=== PATIENT | male | born 1955 | race Caucasian/White ===

== ENCOUNTER 2018-06-10 06:13 | Day surgery (SDC) | payer BC, OTHER ==
[2018-06-05 15:33] VITALS: BMI 27.6
[2018-06-10 06:37] VITALS: TEMP 97.5
[2018-06-10] MEDS ORDERED: SUCCINYLCHOLINE CHLORIDE 200 MG/10 ML VIAL ONE (07:18)
[2018-06-10] MEDS ORDERED: MIDAZOLAM HCL 2 MG/2 ML SINGLE DOSE VIAL ONE ×3 (07:18→08:18)
[2018-06-10] MEDS ORDERED: PROPOFOL 20 ML ONE ×4 (07:18)
--- NOTE | 2018-06-10 08:04 | HP ---
History & Physical Update - History History: No Change - Physical Physical: No Change - Assessment Assessment: No Change - Plan Plan: No Change (no changes since visit on 05/28/18)
[2018-06-10] MEDS ORDERED: ceFAZolin SODIUM 1 GM VIAL IVPB ONE (08:17)
[2018-06-10] MEDS ORDERED: LIDOCAINE HCL 1% PRESERVATIVE FREE - 30ML VIAL IJ ONE (08:26)
[2018-06-10] MEDS ORDERED: BUPIVACAINE HCL/PF 0.5% (5MG/ML) 10 ML VIAL ONE (08:30)
[2018-06-10] MEDS ORDERED: BENZOIN/ALOE VERA/STORAX/TOLU 58 ML BOTTLE ONE (08:42)
--- NOTE | 2018-06-10 09:05 | OP ---
Operative Note - Note: Operative Date: 06/10/18 Pre-Operative Diagnosis: Left flank mass Operation: excision of left flank mass Post-Operative Diagnosis: Same as Pre-op Surgeon: Dane Chandler Ship Boss: Melina Bobo Anesthesiologist/BREAKER BOSS: Kwame Knight Anesthesia: Local, MAC Specimens Removed: left flank mass Estimated Blood Loss (mls): 5 Fluid Volume Replaced (mls): 500 Operative Report Dictated: Yes
--- NOTE | 2018-06-10 09:08 | SURG ---
Surgery Agricultural Equipment Mechanic Note Agricultural Equipment Mechanic: Melina Bobo PA-C Date of Service: 06/10/18 Diagnosis: left flank mass Procedure: excision of left flank mass I was present for the entirety of the operative procedure. For further detail, please refer to operative report. Visit type - Case Type Case Type: Scheduled - New patient This patient is new to me today: Yes Date on this admission: 06/10/18
[2018-06-10 10:30] VITALS: BP 129/73; PULSE 70
--- NOTE | 2018-06-12 11:41 | PATH ---
Surgical Pathology Report Patient Name: ADELA BENAVIDEZ JR [facility]. Rec. #: [id number] /Age/Gender: 1955 (Age: 63) / M Account: [id number] Location: [facility] SURGICAL Taken: 06/10/2018 Received: 06/10/2018 Reported: 06/12/2018 Physicians: Dane Chandler MD Specimen(s) Received SEBACEOUS CYST Clinical History Sebaceous cyst, left back Final Diagnosis BACK, LEFT, SEBACEOUS CYST, EXCISION: EPIDERMAL INCLUSION CYST. Electronically Signed Liliam Kenyon M.D. Gross Description Received in formalin labeled "sebaceous cyst left back," is a 4.0 x 3.0 x 2.0 cm intact cyst which is partially surfaced by a 4.0 x 0.8 cm myers, elliptical, unremarkable portion of skin. The cyst lumen contains myers sebaceous material. A phone representative section is submitted in one cassette. 06/10/201806/10/2018
--- NOTE | 2018-07-16 11:40 | OP ---
DATE OF OPERATION: 06/10/2018 PREOPERATIVE DIAGNOSIS: Left flank mass. POSTOPERATIVE DIAGNOSIS: Left flank mass. PROCEDURE: Excision, left flank mass. SURGEON: Dane Chandler MD BROOM BUILDER: Melina Bobo PA-C ANESTHESIA: Local with IV sedation. OPERATIVE FINDINGS: There was a subcutaneous left flank mass just above the left posterior-superior iliac spine, and it was clinically consistent with a sebaceous cyst measuring approximately 5 cm in greatest dimension. The rest of the findings were unremarkable. DESCRIPTION OF PROCEDURE: The patient was placed on the operating table in the right lateral decubitus position, and the area over the mass was prepped with ChloraPrep and draped in sterile fashion. A timeout was taken and an incision mapped out and the area infiltrated with 1% Xylocaine and 0.50% Marcaine in equal concentration. Incision was made with a scalpel and taken down through skin and subcutaneous tissue. Using blunt dissection, the mass was completely dissected from the surrounding tissues down to its pedicle which was clamped on the cystic side and sent for pathological examination. The pedicle was ligated with 3-0 Vicryl suture. Hemostasis was secured with electrocautery and the wound copiously irrigated with sterile saline and then the incision closed in layers with interrupted 3-0 Vicryl for the deep dermis and 4-0 Biosyn in a subcuticular continuous fashion. Steri- Strips and dry sterile dressings were placed and the procedure terminated at this point and the patient transferred to the postanesthesia care unit in stable condition, awake and alert. ESTIMATED BLOOD LOSS: 5 mL REPLACEMENTS: Crystalloid. DRAINS: None. SPECIMENS: Left flank mass to Pathology. I, Dane Chandler MD, was physically present in the operating room from the time the patient was placed on the operating table until he was transferred to the postanesthesia care unit in stable condition, awake and alert. MD MOHAN Barr/[id number] MTDD
== END 2018-06-10 10:40 | disposition home or self-care (01) ==
LOC: JASU-SURG 06:13
PROVIDERS: ATTEND Surgery
PROC: 0JBM0ZZ Excision of Left Upper Leg Subcutaneous Tissue and Fascia, Open Approach (ICD-10-PCS; 2018-06-10)
PROC: 0JQM0ZZ Repair Left Upper Leg Subcutaneous Tissue and Fascia, Open Approach (ICD-10-PCS; principal; 2018-06-10 08:00)
DX: L72.3 Sebaceous cyst (principal)
CPT/HCPCS: 88304-TC

== ENCOUNTER 2020-12-28 12:19 | Inpatient (IN) | payer BC ==
[2020-12-28] MEDS ORDERED: ACETAMINOPHEN 1000 MG/100 ML VIAL (NON FORMULARY) IVPB ONE (13:09)
[2020-12-28] MEDS ORDERED: ONDANSETRON 4 MG/2 ML VIAL IVPUSH ONE (13:09)
[2020-12-28] MEDS ORDERED: LACTATED RINGERS SOLUTION 1000 ML INFUS.BAG IV ONE (13:09)
[2020-12-28] MEDS ORDERED: ONDANSETRON 4 MG/2 ML VIAL ONE (13:33)
[2020-12-28] MEDS ORDERED: ACETAMINOPHEN INJECTION 100 ML IVPB ONE (13:33)
[2020-12-28] MEDS ORDERED: SODIUM CHLORIDE 0.9% 500 ML INFUS.BAG IV ONE ×2 (13:36→15:17)
[2020-12-28 14:06] LABS: BASO % 0.5 % (0-2.0); HEMATOCRIT 41.1 % (35.4-49); HEMOGLOBIN 14.6 GM/dL (11.7-16.9); LYMPH % 4.9 % (8-40); MCH 29.9 pg (25.7-33.7); MCHC 35.6 g/dl (32.0-35.9); MEAN CELL VOLUME 83.8 fl (80-96); MEAN PLT VOLUME 9.2 fl (7.5-11.1); MONO % 3.4 % (3.8-10.2); NEUT % 91.2 % (42.8-82.8); PLATELET COUNT 149 K/MM3 (134-434); RDW 13.3 % (11.9-15.9); WHITE BLOOD COUNT 5.2 K/mm3 (4.0-10.0)
[2020-12-28 14:24] LABS: CHLORIDE 99 mmol/L (98-107); POTASSIUM 3.8 mmol/L (3.5-5.1); SODIUM 129 mmol/L (136-145)
[2020-12-28 14:26] LABS: CALCIUM 7.9 mg/dL (8.5-10.1); GLUCOSE,RANDOM 103 mg/dL (74-106)
[2020-12-28 14:27] LABS: ALBUMIN 3.1 g/dl (3.4-5.0); ANION GAP 10 MMOL/L (8-16); BLOOD UREA NITROGEN 27.8 mg/dL (7-18); CO2 21 mmol/L (21-32)
[2020-12-28 14:30] LABS: CREATININE 1.4 mg/dL (0.55-1.3); SGOT/AST 72 U/L (15-37); SGPT/ALT 55 U/L (13-61)
[2020-12-28 14:31] LABS: BILIRUBIN,TOTAL 0.9 mg/dL (0.2-1)
[2020-12-28 14:32] LABS: ALK PHOS 49 U/L (45-117); TOT PROT 6.4 g/dl (6.4-8.2)
[2020-12-28 14:34] LABS: LDH 513 U/L (87-246)
[2020-12-28] MEDS ORDERED: DEXAMETHASONE SOD PHOSPHATE 10 MG/1 ML VIAL IVPUSH ONE (15:14)
[2020-12-28 15:26] LABS: ANISOCYTOSIS 1+; MACROCYTOSIS 0; PLATELET ESTIMATE DECREASED
[2020-12-28] MEDS ORDERED: DEXAMETHASONE SOD PHOSPHATE 10 MG/1 ML VIAL ONE (15:35)
[2020-12-28] MEDS ORDERED: CEFTRIAXONE 1,000 MG in DEXTROSE 5%-WATER - 50 ML IVPB ONE (15:51)
[2020-12-28] MEDS ORDERED: AZITHROMYCIN IVPB 500 MG in DEXTROSE 5%-WATER - 250 ML IVPB ONE (15:51)
[2020-12-28] MEDS ORDERED: CEFTRIAXONE 1 GM/50 ML BAG ONE (16:17)
[2020-12-28] MEDS ORDERED: AZITHROMYCIN IVPB 500 MG/250 ML BAG IVPB ONE (16:17)
[2020-12-28] MEDS ORDERED: ACETAMINOPHEN 325 MG TABLET (FP) PO PRN (16:30)
[2020-12-28] MEDS ORDERED: ASCORBIC ACID 500 MG TABLET (FP) ONE (21:49)
[2020-12-28] MEDS ORDERED: ZINC SULFATE 220 MG CAPSULE (FP) ONE (21:50)
[2020-12-28] MEDS ORDERED: APIXABAN 5 MG TABLET ONE (21:50)
[2020-12-28] MEDS: APIXABAN 5 MG TABLET PO SCH (21:54)
[2020-12-28] MEDS: ZINC SULFATE 220 MG CAPSULE (FP) PO SCH (21:54)
[2020-12-28] MEDS: ASCORBIC ACID 500 MG TABLET (FP) PO SCH (21:54)
[2020-12-29 07:53] LABS: BASO % 0.3 % (0-2.0); HEMATOCRIT 37.4 % (35.4-49); HEMOGLOBIN 13.3 GM/dL (11.7-16.9); LYMPH % 6.5 % (8-40); MCHC 35.6 g/dl (32.0-35.9); MEAN CELL VOLUME 84.1 fl (80-96); MONO % 4.2 % (3.8-10.2); PLATELET COUNT 148 K/MM3 (134-434); RBC 4.45 M/mm3 (4.00-5.60); RDW 13.4 % (11.9-15.9); WHITE BLOOD COUNT 5.3 K/mm3 (4.0-10.0)
[2020-12-29 08:11] LABS: POTASSIUM 4.5 mmol/L (3.5-5.1)
[2020-12-29 08:16] LABS: BLOOD UREA NITROGEN 27.2 mg/dL (7-18); CALCIUM 7.6 mg/dL (8.5-10.1)
[2020-12-29 08:17] LABS: ALBUMIN 2.6 g/dl (3.4-5.0); MAGNESIUM 2.5 mg/dL (1.8-2.4)
[2020-12-29 08:19] LABS: PHOSPHOROUS 2.7 mg/dL (2.5-4.9)
[2020-12-29 08:22] LABS: CREATININE 1.2 mg/dL (0.55-1.3)
[2020-12-29 08:23] LABS: BILIRUBIN,TOTAL 0.6 mg/dL (0.2-1)
[2020-12-29 08:24] LABS: TOT PROT 5.5 g/dl (6.4-8.2)
[2020-12-29] MEDS ORDERED: cefTRIAXone SODIUM 1 GM VIAL ONE (08:45)
[2020-12-29] MEDS ORDERED: DEXTROSE 5%-WATER - 50 ML IVPB ONE (08:45)
[2020-12-29] MEDS: CEFTRIAXONE 1 GM in DEXTROSE 5%-WATER - 50 ML IVPB SCH (09:01)
[2020-12-29] MEDS: DEXAMETHASONE SOD PHOSPHATE 10 MG/1 ML VIAL IVPUSH SCH (09:01)
[2020-12-29] MEDS: AZITHROMYCIN IVPB 500 MG/250 ML BAG IVPB SCH (09:01)
[2020-12-29] MEDS: CHOLECALCIFEROL (VIT D3) 1,000 UNIT (25 MCG) TABLET PO SCH (09:03)
[2020-12-29] MEDS: ZINC SULFATE 220 MG CAPSULE (FP) PO SCH ×2 (09:03→21:38)
[2020-12-29] MEDS: ASCORBIC ACID 500 MG TABLET (FP) PO SCH ×2 (09:03→21:38)
[2020-12-29] MEDS: APIXABAN 5 MG TABLET PO SCH ×2 (09:03→21:38)
[2020-12-29] MEDS ORDERED: REMDESIVIR 200 MG in SODIUM CHLORIDE 210 ML IVPB ONE (13:00)
[2020-12-29] MEDS: BUDESONIDE/FORMETEROL FUMARATE 160/4.5 mcg INHALER IH SCH ×2 (13:20→21:38)
[2020-12-29] MEDS: ALBUTEROL SO4 HFA INHALER IH SCH ×2 (17:33→21:38)
[2020-12-29] MEDS ORDERED: BENZOCAINE/MENTH/CETYLPYRD CL 1 EACH LOZENGE MM PRN (19:57)
[2020-12-29] MEDS ORDERED: guaiFENesin/CODEINE 5 ML UNIT-DOSE CUPS PO PRN (19:57)
[2020-12-29] MEDS ORDERED: SODIUM CHLORIDE NASAL SPRAY 44 ML BOTTLE NS PRN (19:57)
[2020-12-29] MEDS ORDERED: SODIUM CHLORIDE 1,000 ML IV SCH (20:15)
[2020-12-30 07:56] LABS: HEMOGLOBIN 13.1 GM/dL (11.7-16.9); MCH 30.1 pg (25.7-33.7); MCHC 35.5 g/dl (32.0-35.9); MEAN CELL VOLUME 84.7 fl (80-96); MEAN PLT VOLUME 8.8 fl (7.5-11.1); PLATELET COUNT 183 K/MM3 (134-434); RBC 4.37 M/mm3 (4.00-5.60); RDW 13.4 % (11.9-15.9); WHITE BLOOD COUNT 9.2 K/mm3 (4.0-10.0)
[2020-12-30 08:28] LABS: ALBUMIN 2.4 g/dl (3.4-5.0); BLOOD UREA NITROGEN 24.9 mg/dL (7-18); CALCIUM 7.4 mg/dL (8.5-10.1)
[2020-12-30 08:31] LABS: CREATININE 1.1 mg/dL (0.55-1.3)
[2020-12-30 08:33] LABS: BILIRUBIN,TOTAL 0.6 mg/dL (0.2-1); TOT PROT 5.2 g/dl (6.4-8.2)
[2020-12-30] MEDS ORDERED: DEXTROSE 5%-WATER - 50 ML IVPB ONE (08:57)
[2020-12-30] MEDS ORDERED: cefTRIAXone SODIUM 1 GM VIAL ONE (08:57)
[2020-12-30] MEDS: ALBUTEROL SO4 HFA INHALER IH SCH ×4 (09:00→21:36)
[2020-12-30] MEDS: AZITHROMYCIN IVPB 500 MG/250 ML BAG IVPB SCH (09:09)
[2020-12-30] MEDS: CEFTRIAXONE 1 GM in DEXTROSE 5%-WATER - 50 ML IVPB SCH (09:09)
[2020-12-30] MEDS: DEXAMETHASONE SOD PHOSPHATE 10 MG/1 ML VIAL IVPUSH SCH (09:10)
[2020-12-30] MEDS: ASCORBIC ACID 500 MG TABLET (FP) PO SCH ×2 (09:10→21:36)
[2020-12-30] MEDS: ZINC SULFATE 220 MG CAPSULE (FP) PO SCH ×2 (09:10→21:36)
[2020-12-30] MEDS: APIXABAN 5 MG TABLET PO SCH ×2 (09:11→21:36)
[2020-12-30] MEDS: CHOLECALCIFEROL (VIT D3) 1,000 UNIT (25 MCG) TABLET PO SCH (09:13)
[2020-12-30] MEDS: BUDESONIDE/FORMETEROL FUMARATE 160/4.5 mcg INHALER IH SCH ×2 (09:13→21:36)
[2020-12-30] MEDS: REMDESIVIR 100 MG in SODIUM CHLORIDE 230 ML IVPB SCH (13:31)
[2020-12-30] MEDS ORDERED: ARTIFICIAL TEARS (POLYVINYL ALCOHOL) OPTH DROPS OU PRN (15:17)
[2020-12-30] MEDS ORDERED: MORPHINE SULFATE 2 MG/ML VIAL IVPUSH PRN (16:51)
[2020-12-30 17:39] LABS: ARTERIAL BLD GAS O2 SATURATION 96.3 mmHg (95-98); ARTERIAL BLOOD GAS BASE EXCESS -3.7 mmol/L (-2-2); ARTERIAL BLOOD GAS pH 7.472 (7.350-7.450)
[2020-12-30 17:53] LABS: ALLENS TEST POSITIVE
[2020-12-30 17:54] LABS: VENT MODE 15L
[2020-12-31 07:21] LABS: HEMATOCRIT 40.9 % (35.4-49); HEMOGLOBIN 14.3 GM/dL (11.7-16.9); MCH 30.2 pg (25.7-33.7); MCHC 35.1 g/dl (32.0-35.9); MEAN CELL VOLUME 86.2 fl (80-96); MEAN PLT VOLUME 8.9 fl (7.5-11.1); PLATELET COUNT 227 K/MM3 (134-434); RBC 4.75 M/mm3 (4.00-5.60); RDW 13.5 % (11.9-15.9); WHITE BLOOD COUNT 10.2 K/mm3 (4.0-10.0)
[2020-12-31 07:37] LABS: POTASSIUM 3.9 mmol/L (3.5-5.1)
[2020-12-31 07:40] LABS: ALBUMIN 2.7 g/dl (3.4-5.0); BLOOD UREA NITROGEN 24.9 mg/dL (7-18); CALCIUM 7.7 mg/dL (8.5-10.1)
[2020-12-31 07:43] LABS: CREATININE 1.1 mg/dL (0.55-1.3)
[2020-12-31 07:45] LABS: BILIRUBIN,TOTAL 0.9 mg/dL (0.2-1)
[2020-12-31] MEDS: ALBUTEROL SO4 HFA INHALER IH SCH ×5 (08:30→21:33)
[2020-12-31] MEDS ORDERED: PT OWN MED DRAWER 7, Y5N ONE (10:06)
[2020-12-31] MEDS: DEXAMETHASONE SOD PHOSPHATE 10 MG/1 ML VIAL IVPUSH SCH (10:12)
[2020-12-31] MEDS: APIXABAN 5 MG TABLET PO SCH ×2 (10:12→21:33)
[2020-12-31] MEDS: ZINC SULFATE 220 MG CAPSULE (FP) PO SCH ×2 (10:13→21:33)
[2020-12-31] MEDS: BUDESONIDE/FORMETEROL FUMARATE 160/4.5 mcg INHALER IH SCH ×2 (10:13→22:33)
[2020-12-31] MEDS: CHOLECALCIFEROL (VIT D3) 1,000 UNIT (25 MCG) TABLET PO SCH (10:13)
[2020-12-31] MEDS: ASCORBIC ACID 500 MG TABLET (FP) PO SCH ×2 (10:13→21:33)
[2020-12-31 12:32] VITALS: BMI 26.4
[2020-12-31] MEDS: REMDESIVIR 100 MG in SODIUM CHLORIDE 230 ML IVPB SCH (13:03)
[2020-12-31] MEDS ORDERED: TOCILIZUMAB (ACTEMRA) 200 MG/10 ML VIAL IVPB ONE (13:04)
[2020-12-31] MEDS ORDERED: TOCILIZUMAB 400 MG, TOCILIZUMAB 200 MG, TOCILIZUMAB 50 MG in SODIUM CHLORIDE 67.5 ML IVPB ONE ×2 (15:00→17:00)
[2020-12-31] MEDS ORDERED: BENZOCAINE/MENTH/CETYLPYRD CL 1 EACH LOZENGE MM PRN (15:52)
[2020-12-31] MEDS ORDERED: guaiFENesin/CODEINE 5 ML UNIT-DOSE CUPS PO PRN (15:52)
[2020-12-31] MEDS ORDERED: SODIUM CHLORIDE NASAL SPRAY 44 ML BOTTLE NS PRN (15:52)
[2020-12-31] MEDS ORDERED: ARTIFICIAL TEARS (POLYVINYL ALCOHOL) OPTH DROPS OU PRN (15:52)
[2021-01-01] MEDS: ACETAMINOPHEN 325 MG TABLET (FP) PO PRN ×3 (02:45→17:24)
[2021-01-01] MEDS: ALBUTEROL SO4 HFA INHALER IH SCH ×4 (09:00→21:43)
[2021-01-01] MEDS: ZINC SULFATE 220 MG CAPSULE (FP) PO SCH ×2 (09:06→21:44)
[2021-01-01] MEDS: ASCORBIC ACID 500 MG TABLET (FP) PO SCH ×2 (09:06→21:44)
[2021-01-01] MEDS: CHOLECALCIFEROL (VIT D3) 1,000 UNIT (25 MCG) TABLET PO SCH (09:06)
[2021-01-01] MEDS: APIXABAN 5 MG TABLET PO SCH ×2 (09:06→21:44)
[2021-01-01 09:27] LABS: POTASSIUM 4.3 mmol/L (3.5-5.1)
[2021-01-01 09:50] LABS: CREATININE 0.9 mg/dL (0.55-1.3)
[2021-01-01 09:51] LABS: BILIRUBIN,TOTAL 1.1 mg/dL (0.2-1); TOT PROT 5.5 g/dl (6.4-8.2)
[2021-01-01 09:58] LABS: ALBUMIN 2.4 g/dl (3.4-5.0)
[2021-01-01 10:00] LABS: BLOOD UREA NITROGEN 32.1 mg/dL (7-18)
[2021-01-01 10:04] LABS: CALCIUM 7.9 mg/dL (8.5-10.1)
[2021-01-01] MEDS: BUDESONIDE/FORMETEROL FUMARATE 160/4.5 mcg INHALER IH SCH ×2 (10:08→21:44)
[2021-01-01] MEDS: DEXAMETHASONE SOD PHOSPHATE 10 MG/1 ML VIAL IVPUSH SCH (10:20)
[2021-01-01 10:27] LABS: HEMATOCRIT 39.6 % (35.4-49); HEMOGLOBIN 14.1 GM/dL (11.7-16.9); MCH 30.2 pg (25.7-33.7); MCHC 35.5 g/dl (32.0-35.9); MEAN PLT VOLUME 8.6 fl (7.5-11.1); PLATELET COUNT 234 K/MM3 (134-434); RBC 4.66 M/mm3 (4.00-5.60); RDW 13.5 % (11.9-15.9); WHITE BLOOD COUNT 8.2 K/mm3 (4.0-10.0)
[2021-01-01] MEDS: REMDESIVIR 100 MG in SODIUM CHLORIDE 230 ML IVPB SCH (12:28)
[2021-01-01] MEDS ORDERED: MELATONIN 5 MG TABLETS PO ONE (23:56)
[2021-01-02] MEDS: ACETAMINOPHEN 325 MG TABLET (FP) PO PRN ×2 (06:37→20:22)
[2021-01-02 07:44] LABS: HEMATOCRIT 39.5 % (35.4-49); HEMOGLOBIN 13.8 GM/dL (11.7-16.9); MCH 29.8 pg (25.7-33.7); MCHC 34.8 g/dl (32.0-35.9); MEAN CELL VOLUME 85.5 fl (80-96); MEAN PLT VOLUME 8.5 fl (7.5-11.1); PLATELET COUNT 332 K/MM3 (134-434); RBC 4.62 M/mm3 (4.00-5.60); RDW 13.9 % (11.9-15.9); WHITE BLOOD COUNT 9.5 K/mm3 (4.0-10.0)
[2021-01-02 07:57] LABS: POTASSIUM 4.2 mmol/L (3.5-5.1)
[2021-01-02 08:06] LABS: ALBUMIN 2.6 g/dl (3.4-5.0)
[2021-01-02 08:07] LABS: CALCIUM 8.2 mg/dL (8.5-10.1)
[2021-01-02 08:09] LABS: TOT PROT 5.7 g/dl (6.4-8.2)
[2021-01-02 08:10] LABS: CREATININE 0.9 mg/dL (0.55-1.3)
[2021-01-02] MEDS ORDERED: PT OWN MED DRAWER 7, Y5N ONE (09:12)
[2021-01-02] MEDS: ZINC SULFATE 220 MG CAPSULE (FP) PO SCH ×2 (09:25→21:28)
[2021-01-02] MEDS: CHOLECALCIFEROL (VIT D3) 1,000 UNIT (25 MCG) TABLET PO SCH (09:25)
[2021-01-02] MEDS: DEXAMETHASONE SOD PHOSPHATE 10 MG/1 ML VIAL IVPUSH SCH (09:25)
[2021-01-02] MEDS: APIXABAN 5 MG TABLET PO SCH ×2 (09:25→21:28)
[2021-01-02] MEDS: ASCORBIC ACID 500 MG TABLET (FP) PO SCH ×2 (09:25→21:28)
[2021-01-02] MEDS: BUDESONIDE/FORMETEROL FUMARATE 160/4.5 mcg INHALER IH SCH ×2 (09:26→21:28)
[2021-01-02] MEDS: ALBUTEROL SO4 HFA INHALER IH SCH ×4 (09:26→21:28)
[2021-01-02] MEDS: metoPROLOL SUCCINATE 25 MG TAB.SR.24H (FP) PO SCH ×2 (11:20→21:28)
[2021-01-02] MEDS: LOSARTAN POTASSIUM 50 MG TABLET PO SCH (11:20)
[2021-01-02] MEDS: ASPIRIN COATED 81 MG TABLET.EC PO SCH (11:20)
[2021-01-02] MEDS: REMDESIVIR 100 MG in SODIUM CHLORIDE 230 ML IVPB SCH (13:16)
[2021-01-02] MEDS: ATORVASTATIN CA 40 MG TABLET (FP) PO SCH (21:28)
[2021-01-02] MEDS ORDERED: LIDOCAINE 5% TOPICAL PATCH TP ONE (22:17)
[2021-01-02] MEDS ORDERED: MELATONIN 5 MG TABLETS PO ONE (22:17)
[2021-01-02] MEDS: LIDOCAINE PATCH REMOVAL MC SCH (22:32)
[2021-01-03 07:14] LABS: BASO % 0.1 % (0-2.0); EOS % 0.3 % (0-4.5); HEMATOCRIT 39.7 % (35.4-49); HEMOGLOBIN 13.8 GM/dL (11.7-16.9); LYMPH % 4.2 % (8-40); MCHC 34.6 g/dl (32.0-35.9); MEAN CELL VOLUME 86.7 fl (80-96); MEAN PLT VOLUME 8.7 fl (7.5-11.1); MONO % 2.4 % (3.8-10.2); PLATELET COUNT 356 K/MM3 (134-434); RBC 4.58 M/mm3 (4.00-5.60); RDW 13.6 % (11.9-15.9)
[2021-01-03 07:26] LABS: POTASSIUM 4.9 mmol/L (3.5-5.1)
[2021-01-03 07:31] LABS: CALCIUM 8.2 mg/dL (8.5-10.1)
[2021-01-03 07:32] LABS: ALBUMIN 2.7 g/dl (3.4-5.0); BLOOD UREA NITROGEN 34.7 mg/dL (7-18); MAGNESIUM 2.3 mg/dL (1.8-2.4)
[2021-01-03 07:35] LABS: CREATININE 0.9 mg/dL (0.55-1.3)
[2021-01-03 07:37] LABS: BILIRUBIN,TOTAL 1.1 mg/dL (0.2-1); TOT PROT 5.6 g/dl (6.4-8.2)
[2021-01-03] MEDS: ALBUTEROL SO4 HFA INHALER IH SCH ×4 (08:41→22:29)
[2021-01-03] MEDS ORDERED: MENTHOL/PHENOL 1 EACH UD MM PRN (09:50)
[2021-01-03] MEDS: ZINC SULFATE 220 MG CAPSULE (FP) PO SCH ×2 (10:08→22:29)
[2021-01-03] MEDS: APIXABAN 5 MG TABLET PO SCH ×2 (10:08→22:29)
[2021-01-03] MEDS: ASCORBIC ACID 500 MG TABLET (FP) PO SCH ×2 (10:08→22:28)
[2021-01-03] MEDS: ASPIRIN COATED 81 MG TABLET.EC PO SCH (10:09)
[2021-01-03] MEDS: DEXAMETHASONE SOD PHOSPHATE 10 MG/1 ML VIAL IVPUSH SCH (10:09)
[2021-01-03] MEDS: metoPROLOL SUCCINATE 25 MG TAB.SR.24H (FP) PO SCH ×2 (10:09→22:28)
[2021-01-03] MEDS: CHOLECALCIFEROL (VIT D3) 1,000 UNIT (25 MCG) TABLET PO SCH (10:09)
[2021-01-03] MEDS: BUDESONIDE/FORMETEROL FUMARATE 160/4.5 mcg INHALER IH SCH ×2 (10:10→22:29)
[2021-01-03] MEDS: ACETAMINOPHEN 325 MG TABLET (FP) PO PRN ×2 (10:10→22:29)
[2021-01-03] MEDS: LOSARTAN POTASSIUM 50 MG TABLET PO SCH (10:10)
[2021-01-03 10:41] LABS: ANISOCYTOSIS 0; MACROCYTOSIS 0
[2021-01-03] MEDS: MELATONIN 5 MG TABLETS PO PRN (22:28)
[2021-01-03] MEDS: ATORVASTATIN CA 40 MG TABLET (FP) PO SCH (22:28)
[2021-01-03] MEDS: LIDOCAINE PATCH REMOVAL MC SCH (22:29)
[2021-01-04 07:07] LABS: BASO % 0.1 % (0-2.0); EOS % 1.1 % (0-4.5); HEMATOCRIT 42.9 % (35.4-49); HEMOGLOBIN 15.1 GM/dL (11.7-16.9); LYMPH % 3.3 % (8-40); MCH 30.2 pg (25.7-33.7); MCHC 35.2 g/dl (32.0-35.9); MEAN CELL VOLUME 85.7 fl (80-96); MEAN PLT VOLUME 8.3 fl (7.5-11.1); MONO % 1.7 % (3.8-10.2); NEUT % 93.8 % (42.8-82.8); PLATELET COUNT 411 K/MM3 (134-434); RBC 5.01 M/mm3 (4.00-5.60); RDW 13.8 % (11.9-15.9); WHITE BLOOD COUNT 9.9 K/mm3 (4.0-10.0)
[2021-01-04 07:22] LABS: POTASSIUM 4.7 mmol/L (3.5-5.1)
[2021-01-04 07:27] LABS: BLOOD UREA NITROGEN 38.1 mg/dL (7-18); CALCIUM 8.7 mg/dL (8.5-10.1)
[2021-01-04 07:28] LABS: MAGNESIUM 2.2 mg/dL (1.8-2.4)
[2021-01-04 07:30] LABS: PHOSPHOROUS 4.4 mg/dL (2.5-4.9)
[2021-01-04 07:31] LABS: BILIRUBIN,TOTAL 1.2 mg/dL (0.2-1)
[2021-01-04 09:22] LABS: ANISOCYTOSIS 0; MACROCYTOSIS 0; PLATELET ESTIMATE NORMAL
[2021-01-04] MEDS ORDERED: SODIUM CHLORIDE 1,000 ML IV SCH (10:00)
[2021-01-04] MEDS: LOSARTAN POTASSIUM 50 MG TABLET PO SCH (10:45)
[2021-01-04] MEDS: CHOLECALCIFEROL (VIT D3) 1,000 UNIT (25 MCG) TABLET PO SCH (10:45)
[2021-01-04] MEDS: metoPROLOL SUCCINATE 25 MG TAB.SR.24H (FP) PO SCH ×2 (10:46→21:57)
[2021-01-04] MEDS: APIXABAN 5 MG TABLET PO SCH ×2 (10:46→21:57)
[2021-01-04] MEDS: ASCORBIC ACID 500 MG TABLET (FP) PO SCH ×2 (10:46→21:57)
[2021-01-04] MEDS: DEXAMETHASONE SOD PHOSPHATE 10 MG/1 ML VIAL IVPUSH SCH (10:46)
[2021-01-04] MEDS: ZINC SULFATE 220 MG CAPSULE (FP) PO SCH ×2 (10:46→21:57)
[2021-01-04] MEDS: ALBUTEROL SO4 HFA INHALER IH SCH ×5 (10:46→21:57)
[2021-01-04] MEDS: BUDESONIDE/FORMETEROL FUMARATE 160/4.5 mcg INHALER IH SCH ×2 (10:47→21:57)
[2021-01-04] MEDS: ASPIRIN COATED 81 MG TABLET.EC PO SCH (10:47)
[2021-01-04] MEDS: ATORVASTATIN CA 40 MG TABLET (FP) PO SCH (21:57)
[2021-01-04] MEDS: LIDOCAINE PATCH REMOVAL MC SCH (22:04)
[2021-01-05] MEDS: ALBUTEROL SO4 HFA INHALER IH SCH ×4 (08:34→21:38)
[2021-01-05 08:50] LABS: EOS % 0.9 % (0-4.5); HEMATOCRIT 42.4 % (35.4-49); LYMPH % 4.4 % (8-40); MCH 30.3 pg (25.7-33.7); MCHC 35.3 g/dl (32.0-35.9); MEAN PLT VOLUME 8.5 fl (7.5-11.1); NEUT % 91.7 % (42.8-82.8); PLATELET COUNT 452 K/MM3 (134-434); RBC 4.93 M/mm3 (4.00-5.60); RDW 13.7 % (11.9-15.9); WHITE BLOOD COUNT 10.8 K/mm3 (4.0-10.0)
[2021-01-05 09:18] LABS: POTASSIUM 4.9 mmol/L (3.5-5.1)
[2021-01-05 09:29] LABS: BLOOD UREA NITROGEN 42.2 mg/dL (7-18)
[2021-01-05 09:30] LABS: ALBUMIN 3.1 g/dl (3.4-5.0); CREATININE 1.1 mg/dL (0.55-1.3)
[2021-01-05 09:31] LABS: TOT PROT 6.1 g/dl (6.4-8.2)
[2021-01-05 09:32] LABS: CALCIUM 8.5 mg/dL (8.5-10.1); MAGNESIUM 2.6 mg/dL (1.8-2.4); PHOSPHOROUS 3.8 mg/dL (2.5-4.9)
[2021-01-05] MEDS: ASPIRIN COATED 81 MG TABLET.EC PO SCH (10:22)
[2021-01-05] MEDS: APIXABAN 5 MG TABLET PO SCH ×2 (10:22→21:38)
[2021-01-05] MEDS: CHOLECALCIFEROL (VIT D3) 1,000 UNIT (25 MCG) TABLET PO SCH (10:22)
[2021-01-05] MEDS: metoPROLOL SUCCINATE 25 MG TAB.SR.24H (FP) PO SCH ×2 (10:22→21:38)
[2021-01-05] MEDS: ASCORBIC ACID 500 MG TABLET (FP) PO SCH ×2 (10:22→21:38)
[2021-01-05] MEDS: DEXAMETHASONE SOD PHOSPHATE 10 MG/1 ML VIAL IVPUSH SCH (10:23)
[2021-01-05] MEDS: ZINC SULFATE 220 MG CAPSULE (FP) PO SCH ×2 (10:23→21:38)
[2021-01-05] MEDS: LOSARTAN POTASSIUM 50 MG TABLET PO SCH (10:23)
[2021-01-05] MEDS: BUDESONIDE/FORMETEROL FUMARATE 160/4.5 mcg INHALER IH SCH ×2 (10:23→21:38)
[2021-01-05 10:33] LABS: PLATELET ESTIMATE NORMAL
[2021-01-05] MEDS ORDERED: LIDOCAINE 5% TOPICAL PATCH TP ONE (13:02)
[2021-01-05] MEDS ORDERED: SODIUM CHLORIDE 1,000 ML IV SCH (14:00)
[2021-01-05] MEDS: LIDOCAINE PATCH REMOVAL MC SCH (21:38)
[2021-01-05] MEDS: ATORVASTATIN CA 40 MG TABLET (FP) PO SCH (21:38)
[2021-01-05] MEDS ORDERED: LIDOCAINE PATCH REMOVAL MC ONE (22:00)
[2021-01-06] MEDS: APIXABAN 5 MG TABLET PO SCH ×2 (09:55→21:22)
[2021-01-06] MEDS: BUDESONIDE/FORMETEROL FUMARATE 160/4.5 mcg INHALER IH SCH ×2 (09:55→21:23)
[2021-01-06] MEDS: LOSARTAN POTASSIUM 50 MG TABLET PO SCH (09:55)
[2021-01-06] MEDS: DEXAMETHASONE SOD PHOSPHATE 10 MG/1 ML VIAL IVPUSH SCH (09:55)
[2021-01-06] MEDS: ZINC SULFATE 220 MG CAPSULE (FP) PO SCH ×2 (09:55→21:23)
[2021-01-06] MEDS: ASCORBIC ACID 500 MG TABLET (FP) PO SCH ×2 (09:55→21:23)
[2021-01-06] MEDS: ASPIRIN COATED 81 MG TABLET.EC PO SCH (09:55)
[2021-01-06] MEDS: ALBUTEROL SO4 HFA INHALER IH SCH ×4 (09:55→21:23)
[2021-01-06] MEDS: metoPROLOL SUCCINATE 25 MG TAB.SR.24H (FP) PO SCH ×2 (09:55→21:23)
[2021-01-06] MEDS: CHOLECALCIFEROL (VIT D3) 1,000 UNIT (25 MCG) TABLET PO SCH (09:55)
[2021-01-06] MEDS: LIDOCAINE 5% TOPICAL PATCH TP SCH (13:18)
[2021-01-06] MEDS: ATORVASTATIN CA 40 MG TABLET (FP) PO SCH (21:22)
[2021-01-06] MEDS: MELATONIN 5 MG TABLETS PO PRN (21:22)
[2021-01-06] MEDS ORDERED: LIDOCAINE PATCH REMOVAL MC SCH (22:00)
[2021-01-07 07:06] LABS: HEMATOCRIT 40.6 % (35.4-49); HEMOGLOBIN 14.1 GM/dL (11.7-16.9); MCHC 34.8 g/dl (32.0-35.9); MEAN CELL VOLUME 86.2 fl (80-96); MEAN PLT VOLUME 8.5 fl (7.5-11.1); PLATELET COUNT 420 K/MM3 (134-434); RDW 13.5 % (11.9-15.9); WHITE BLOOD COUNT 11.8 K/mm3 (4.0-10.0)
[2021-01-07 07:35] LABS: POTASSIUM 4.5 mmol/L (3.5-5.1)
[2021-01-07 07:46] LABS: CALCIUM 8.5 mg/dL (8.5-10.1)
[2021-01-07 07:47] LABS: ALBUMIN 2.9 g/dl (3.4-5.0); BLOOD UREA NITROGEN 40.6 mg/dL (7-18)
[2021-01-07 07:50] LABS: CREATININE 1.1 mg/dL (0.55-1.3)
[2021-01-07 07:51] LABS: BILIRUBIN,TOTAL 1.4 mg/dL (0.2-1); TOT PROT 5.8 g/dl (6.4-8.2)
[2021-01-07] MEDS: ASPIRIN COATED 81 MG TABLET.EC PO SCH (10:01)
[2021-01-07] MEDS: ASCORBIC ACID 500 MG TABLET (FP) PO SCH (10:01)
[2021-01-07] MEDS: LIDOCAINE 5% TOPICAL PATCH TP SCH (10:02)
[2021-01-07] MEDS: ALBUTEROL SO4 HFA INHALER IH SCH ×2 (10:02→12:49)
[2021-01-07] MEDS: DEXAMETHASONE SOD PHOSPHATE 10 MG/1 ML VIAL IVPUSH SCH (10:02)
[2021-01-07] MEDS: metoPROLOL SUCCINATE 25 MG TAB.SR.24H (FP) PO SCH (10:02)
[2021-01-07] MEDS: CHOLECALCIFEROL (VIT D3) 1,000 UNIT (25 MCG) TABLET PO SCH (10:02)
[2021-01-07] MEDS: APIXABAN 5 MG TABLET PO SCH (10:02)
[2021-01-07] MEDS: LOSARTAN POTASSIUM 50 MG TABLET PO SCH (10:02)
[2021-01-07] MEDS: BUDESONIDE/FORMETEROL FUMARATE 160/4.5 mcg INHALER IH SCH (10:03)
[2021-01-07] MEDS: ZINC SULFATE 220 MG CAPSULE (FP) PO SCH (10:03)
[2021-01-07 11:45] VITALS: PULSE 80
[2021-01-07 13:28] VITALS: BP 120/64; TEMP 98.7
== END 2021-01-07 13:58 | disposition home or self-care (01) | DRG 177 ==
LOC: JER 12:19 → JERBED 15:23 → J7W 22:33 → J4S 12-31 15:52
PROVIDERS: ADMIT Internal Medicine; ATTEND Internal Medicine
PROC: XW033E5 Introduction of Remdesivir Anti-infective into Peripheral Vein, Percutaneous Approach, New Technology Group 5 (ICD-10-PCS; principal; 2020-12-29)
DX: U07.1 COVID-19 (principal); J12.82 Pneumonia due to coronavirus disease 2019; J96.01 Acute respiratory failure with hypoxia; N17.9 Acute kidney failure, unspecified; E87.1 Hypo-osmolality and hyponatremia; J44.9 Chronic obstructive pulmonary disease, unspecified; R00.0 Tachycardia, unspecified; I10 Essential (primary) hypertension; M79.10 Myalgia, unspecified site; E78.5 Hyperlipidemia, unspecified; D69.6 Thrombocytopenia, unspecified
CPT/HCPCS: 36415; 36600; 71045-TC-FY; 80053; 82550; 82553; 82728; 82803; 83605; 83615; 83735; 84100; 84484; 85025; 85027; 85379; 86140; 86769; 86850; 86900; 86901; 87040; 87804; 87899; 93005; 93010; 94761; 97116-GP; 97162-GP; 99285-25; C9399; C9803; J0131; J1100; J3262; U0003